=== PATIENT | female | born 1985 | race Caucasian/White ===

== ENCOUNTER 2017-10-18 09:19 | Outpatient (CLI) | payer BC ==
[~2017-10-18] VITALS: Ht 167.6 cm; Wt 60.6 kg
[~2017-10-18 09:19] MED LIST: ARIP10TA10 PO; BIRTH CONTROL; PARO20TA58 PO; TRAZ50TA18 PO
[2017-10-18 09:28] VITALS: Ht 167.6 cm; Wt 60.6 kg
[2017-10-18 09:29] VITALS: BP 118/81; PULSE 91; RESP 20
[2017-10-18] MEDS ORDERED: PREN1TAB79 PO (09:31)
--- NOTE | 2017-10-18 10:42 | RADRPT ---
PROCEDURE: US OB. CLINICAL INDICATION: Contractions TECHNIQUE: Multiple sonographic images of the pelvis were obtained. The images were reviewed on a PACS workstation. COMPARISON: No prior studies are available for comparison. FINDINGS: There is a single live intrauterine . cardiac activity is identified at a rate of 13 5 beats per minute. presentation is cephalic. Placenta is anterior grade 1 to II Biophysical profile score is as follows: Breathing 2 Movements 2 Tone 2 Fluid volume 2 Amniotic fluid index = 15.1 cm Total biophysical profile score = 8/8 IMPRESSION: Biophysical profile score = 8/8 RPTAT: HH .Lake George MD, MD Date Time Electronically viewed and signed by .L[place] George MD, on 10/18/2017 10:42 .W/
--- NOTE | 2017-10-18 12:06 | RADRPT ---
PROCEDURE: Obstetrical ultrasound. CLINICAL INDICATION: , evaluation. Pelvic pain. TECHNIQUE: Transabdominal sonographic images of the uterus obtained after first trimester , greater than 14 weeks gestation. Single intrauterine gestation present. COMPARISON: US PELVIS 10/18/2017 FINDINGS: Single intrauterine gestation. There is a cephalic presentation. Measurements were made in order to determine age. The results are as follows: BPD = 34 weeks 5 day(s) HC = 34 weeks 6 day(s) AC = 34 weeks 5 day(s) FL = 33 weeks 1 day(s) JIMI = not measured Heart rate = 150 beats per minute The placenta is anterior. There is no evidence for an abruption or placenta previa. Ovaries are not visualized. IMPRESSION: Single intrauterine gestation of approximately 34 weeks 3 days by ultrasound criteria. [place] estimated weight = 2396 g; 44 percentile for gestational age of 34 weeks 2 days. RPTAT: AADD .Zhou Nelson MD, MD Date Time Electronically viewed and signed by .Zhou Nelson MD, on 10/18/2017 12:05 .B/
--- NOTE | 2017-10-18 14:15 | PN ---
Triage Information Date/Time Reason for visit: IUGR Weeks of Gestation 34 weeks and 2 days /Para 2-1 2 Diabetes: none Objective Vital Signs Date Time Temp Pulse Resp B/P Pulse Ox O2 Delivery O2 Flow Rate FiO2 10/18/17 09:29 97.9 91 20 118/81 Room Air Heart Rate: 130's Contractions: None Disposition: Discharge Assessment/Plan The eighth P4 T4 I A1 L4 34 weeks and 2 days sent from the clinic for NST JIMI suspected intrauterine growth restricted, JIMI 15.1 bio physical profile 06/13 estimated weight 2396 g reported at 44 centile, patient discharged home with bedrest hydration, recommended follow-up with the clinic a copy of the ultrasound report given to the patient to present that at her follow-up visit ,with [facility], warning signs of premature rupture of membrane decreased movement explained to the patient recommended to return to the hospital with any of these events otherwise [facility] BRANDIE WARE MD Oct 18, 2017 14:14
--- NOTE | 2017-10-18 15:33 | TRIAGE ---
OB Triage Datetime Report Generated by CPN: 10/18/2017 15:32 Datetime: 10/18/2017 13:30 Labor Evaluation Frequency: X1 Monitor Mode: External Duration (sec)2399: 60 Quality: Mild Pattern: Normal: <= 5 Contractions in 10 Minutes Resting Tone [place]: Relaxed Heart Rate FHR Baseline Rate: 130 Monitor Mode: External US FHR Baseline Changes: No Baseline Change Variability: Moderate 6-25 bpm Accelerations: 15X15 Decelerations: None Category: Category I Pain Assessment Pain Scale: 0 Pain Presence: None/Denies Pain Type: N/A Pain Goal: 0 Datetime: 10/18/2017 12:28 Labor Evaluation Frequency: X2 Monitor Mode: External Duration (sec)2399: 60 Quality: Mild Pattern: Normal: <= 5 Contractions in 10 Minutes Resting Tone [place]: Relaxed Heart Rate FHR Baseline Rate: 130 Monitor Mode: External US FHR Baseline Changes: No Baseline Change Variability: Moderate 6-25 bpm Accelerations: 15X15 Decelerations: None Category: Category I Pain Assessment Pain Scale: 2 Pain Presence: Intermittent Pain Type: Contraction Pain Location: Abdomen Pain Goal: 0 Datetime: 10/18/2017 11:53 Labor Evaluation Frequency: X1 Monitor Mode: External Duration (sec)2399: 80 Quality: Mild Pattern: Normal: <= 5 Contractions in 10 Minutes Resting Tone [place]: Relaxed Heart Rate FHR Baseline Rate: 130 Monitor Mode: External US FHR Baseline Changes: No Baseline Change Variability: Moderate 6-25 bpm Accelerations: 15X15 Decelerations: None Category: Category I Pain Assessment Pain Scale: 0 Pain Presence: None/Denies Pain Type: N/A Pain Goal: 0 Vaginal Exam Membrane Status: Intact Datetime: 10/18/2017 11:29 Labor Evaluation Frequency: 0 Monitor Mode: External Heart Rate FHR Baseline Rate: 130 Monitor Mode: External US FHR Baseline Changes: No Baseline Change Variability: Moderate 6-25 bpm Accelerations: 15X15 Decelerations: None Category: Category I Pain Assessment Pain Scale: 0 Pain Presence: None/Denies Pain Type: N/A Pain Goal: 0 Vaginal Exam Membrane Status: Intact Datetime: 10/18/2017 11:00 Labor Evaluation Frequency: X1 Monitor Mode: External Duration (sec)2399: 90 Quality: Mild Pattern: Normal: <= 5 Contractions in 10 Minutes Resting Tone [place]: Relaxed Heart Rate FHR Baseline Rate: 130 Monitor Mode: External US FHR Baseline Changes: No Baseline Change Variability: Moderate 6-25 bpm Accelerations: 15X15 Decelerations: None Category: Category I Pain Assessment Pain Scale: 0 Pain Presence: None/Denies Pain Type: N/A Pain Goal: 0 Vaginal Exam Membrane Status: Intact Datetime: 10/18/2017 10:29 Labor Evaluation Frequency: X1 Monitor Mode: External Duration (sec)2399: 60 Quality: Mild Pattern: Normal: <= 5 Contractions in 10 Minutes Resting Tone [place]: Relaxed Heart Rate FHR Baseline Rate: 130 Monitor Mode: External US FHR Baseline Changes: No Baseline Change Variability: Moderate 6-25 bpm Accelerations: 15X15 Decelerations: None Category: Category I Pain Assessment Pain Scale: 0 Pain Presence: None/Denies Pain Type: N/A Pain Goal: 0 Datetime: 10/18/2017 09:54 Labor Evaluation Frequency: 0 Monitor Mode: External Heart Rate FHR Baseline Rate: 130 Monitor Mode: External US FHR Baseline Changes: No Baseline Change Variability: Moderate 6-25 bpm Accelerations: 15X15 Decelerations: None Category: Category I Pain Assessment Pain Scale: 0 Pain Presence: None/Denies Pain Type: N/A Pain Goal: 0 Datetime: 10/18/2017 09:32 Time of Arrival: 10/18/2017 09:16 EGA: 34.2 Chief Complaint: LATE CARE, SIZE LESS THAN DATES Movement: Present Contractions: Irregular Rupture of Membranes: Denies Vaginal Discharge: Denies Recent Sexual Intercouse: Denies Abdominal Trauma: Not Applicable Patient Complaints: Other Time Provider Notified: 10/18/2017 14:00 Provider Notified: JEANIE Initial Plan: NST, BPP Datetime: 10/18/2017 09:25 Assessment Type: Triage Maternal Assessment Level of Consciousness: Fully Conscious DTR's/Clonus: DTRs 2+; No Clonus Headache: Generalized Blurred Vision: No Respiratory Effort: Unlabored; Regular Rhythm; Equal Expansion Breath Sounds, Left: Clear and Equal Breath Sounds, Right: Clear and Equal Nausea/Vomiting: Denies RUQ Epigastric Pain: Denies Lower Extremities Edema: None Degree: None Upper Extremities Edema: None Degree: None Facial Edema: None Fall Risk Assessment History of Falling: (0) No Secondary Diagnosis: (0) No Ambulatory Aid: (0) Bedrest/Nurse Assist IV Therapy: (0) No Gait: (0) Normal/Bedrest/Immobile Mental Status: (0) Oriented to Own Ability Fall Score: 0 Fall Risk Score Definition: No Risk: No action required Datetime: 10/18/2017 09:24 Monitor Mode: External Monitor Mode: External US Pain Assessment Pain Scale: 0 Pain Presence: None/Denies Pain Type: N/A Pain Goal: 0 Vaginal Exam Membrane Status: Intact
== END 2017-10-18 14:15 | disposition home or self-care (01) ==
LOC: L-D 09:19 → OBT 09:19 → MERGE 09:19 → OBT 14:15
PROVIDERS: ATTEND Obstetrics & Gynecology
DX: O36.5930 Maternal care for other known or suspected poor fetal growth, third trimester, not applicable or unspecified (principal); Z3A.34 34 weeks gestation of pregnancy
CPT/HCPCS: 76815; 76818; Z7500; G0463